=== PATIENT | male | born 1955 | race Caucasian/White ===

== ENCOUNTER 2024-09-16 07:19 | Outpatient (CLI) | payer MEDICARE, BC ==
[2024-09-16 08:11] LABS: ALBUMIN 3.8 G/DL (3.4-5.0); ANION GAP 5 (8-16); BLOOD UREA NITROGEN 15 MG/DL (7-18); BUN/CREATININE RATIO 16.3 (10.0-20.0); CALCIUM 8.9 MG/DL (8.5-10.1); CHLORIDE 104 MMOL/L (99-107); CREATININE 0.92 MG/DL (0.60-1.10); GLUCOSE 96 MG/DL (70-104); POTASSIUM 4.2 MMOL/L (3.5-5.1); SODIUM 138 MMOL/L (135-145); TOTAL CARBON DIOXIDE 28.6 MMOL/L (24-32); eGFR 81 ML/MIN
[2024-09-16] MEDS ORDERED: iohexol 350MG/ML 100ml bottle IV ONE ×2 (08:58→09:00)
[2024-09-16] MEDS ORDERED: iohexol 300 MG/1 ML 50ml polymer ONE (08:58)
== END 2024-09-16 23:59 | disposition home or self-care (01) ==
LOC: RAD 07:19
PROVIDERS: ATTEND Internal Medicine Interventional Cardiology
DX: N20.0 Calculus of kidney (principal); K57.30 Diverticulosis of large intestine without perforation or abscess without bleeding; I72.3 Aneurysm of iliac artery; I71.40 Abdominal aortic aneurysm, without rupture, unspecified; M16.0 Bilateral primary osteoarthritis of hip; N43.3 Hydrocele, unspecified; E78.5 Hyperlipidemia, unspecified; I70.8 Atherosclerosis of other arteries; M51.369 Other intervertebral disc degeneration, lumbar region without mention of lumbar back pain or lower extremity pain; K59.00 Constipation, unspecified
CPT/HCPCS: 36415; 75635; 80048; Q9967